=== PATIENT | female | born 1980 | race Caucasian/White ===

== ENCOUNTER 2025-06-06 14:44 | Emergency (ER) | payer MEDICAID, OTHER ==
[~2025-06-06] VITALS: Ht 157.5 cm; Wt 91.0 kg
[2025-06-06 14:45] VITALS: BP 151/102; PULSE 89; RESP 20; TEMP 98.4; O2SAT 99
[2025-06-06] MEDS ORDERED: SODIUM CHLORIDE 0.9% 1,000 ML IV ONE (15:00)
--- NOTE | 2025-06-06 15:19 | ED.PDOC ---
History of Present Illness HPI Comments A 45-YEAR-OLD FEMALE BROUGHT IN BY EMS PRESENTS WITH A CHIEF COMPLAINT OF HEAT EXPOSURE WITH ASSOCIATED NAUSEA AND VOMITING. PATIENT STATES THAT SHE WAS WALKING OUTSIDE AND IN THE SUN FOR 4 HOURS WITHOUT WATER. PATIENT WAS OFFERED AN IV FLUIDS AND MEDICATIONS, BUT PATIENT DECIDED TO SIGN OUT AMA AND NOT ALLOW STAFF TO INSERT AN IV OR DRAW BLOOD FOR LAB WORK. PT DENIES FEVER, SOB, CHEST PAIN, abd pain, headache and other complaints. NO OTHER SYMPTOMS OR MODIFYING FACTORS PRESENT AT THIS TIME. Time Seen by MD: 15:06 Primary Care Provider: Reviewed Notes: Nurses Notes, Medications, Allergies Allergies: Coded Allergies: NO KNOWN ALLERGIES (Unverified , 05/02/12) Home Meds No Active Prescriptions or Reported Meds Information Source: Patient, Emergency Med Personnel Mode of Arrival: Ambulatory Severity: Mild, Moderate Timing: Hours Duration: Since onset Prehospital treatment: None Medication Refill: For: Other (HEAT EXPOSURE ) Past Medical History PAST MEDICAL HISTORY: Denies Surgical History: Hysterectomy Family History Family History: Unknown Social History Smoker: Cigarettes Alcohol: Denies ETOH Use Drugs: Marijuana Lives In: Home Constitutional: denies: chills, diaphoresis, fatigue, fever, malaise, sweats, weakness, others EENTM: denies: blurred vision, double vision, ear bleeding, ear discharge, ear drainage, ear pain, ear ringing, eye pain, eye redness, hearing loss, mouth pain, mouth swelling, nasal discharge, nose bleeding, nose congestion, nose pain, photophobia, tearing, throat pain, throat swelling, voice changes, others Respiratory: denies: cough, hemoptysis, orthopnea, SOB at rest, shortness of breath, SOB with excertion, stridor, wheezing, others Cardiovascular: denies: chest pain, dizzy spells, diaphoresis, Dyspnea on exertion, edema, irregular heart beat, left arm pain, lightheadedness, palpitations, PND, syncope, others Gastrointestinal: reports: nausea, vomiting; denies: abdomen distended, abdominal pain, blood streaked bowels, constipated, diarrhea, dysphagia, difficulty swallowing, hematemesis, melena, poor appetite, poor fluid intake, rectal bleeding, rectal pain, others Genitourinary: denies: abnormal vagina bleeding, burning, dyspareunia, dysuria, flank pain, frequency, hematuria, incontinence, pain, , vagina discharge, urgency, others Neurological: denies: dizziness, fainting, headache, left sided numbness, left sided weakness, numbness, paresthesia, pre-existing deficit, right sided numb ness, right sided weakness, seizure, speech problems, tingling, tremors, weakness, others Musculoskeletal: denies: back pain, gout, joint pain, joint swelling, muscle pain, muscle stiffness, neck pain, others Integumetry: denies: bruises, change in color, change in hair/nails, dryness, laceration, lesions, lumps, rash, wounds, others Allergic/Immunocompromised: denies: Difficulty Healing, Frequent Infections, Hives, Itching, others Hematologic/Lymphatic: denies: anemia, blood clots, easy bleeding, easy bruising, swollen glands, others Endocrine: denies: excessive hunger, excessive sweating, excessive thirst, excessive urination, flushing, intolerance to cold, intolerance to heat, unexplained weight gain, unexplained weight loss, others Psychiatric: denies: anxiety, bipolar disorder, depression, hopeless, panic disorder, schizophrenia, sleepless, suicidal, others All Other Systems: Reviewed and Negative Physical Exam General Appearance: No Apparent Distress, Normal HEENT: Normal ENT Inspection, PERRL/EOMI, Pharynx Normal, TMs Normal Neck: Full Range of Motion, Non-Tender, Normal, Normal Inspection Respiratory: Chest Non-Tender, Lungs Clear, No Accessory Muscle Use, No Respiratory Distress, Normal Breath Sounds Cardiovascular: No Edema, No JVD, No Murmur, No Gallop, Normal Peripheral Pulses, Regular Rate/Rhythm Breast Exam: Deferred Gastrointestinal: No Organomegaly, Non Tender, No Pulsatile Mass, Normal Bowel Sounds, Soft Genitalia: Deferred Pelvic: Deferred Rectal: Deferred Extremities: No calf tenderness, Normal capillary refill, Normal inspection, Normal range of motion, Non-tender, No pedal edema Musculoskeletal : Apperance: Normal Neurologic: Alert, e business consultant II-XII nml as Tested, No Motor Deficits, Normal Affect, Normal Mood, No Sensory Deficits Cerebellar Function: Normal Reflexes: Normal Skin: Dry, Normal Color, Warm Peripheral Pulses: 2+ carotid (R), 2+ carotid (L) Lymphatic: No Adenopathy Was a procedure done? Was a procedure done?: No Differential Dx Considerations may include: HEAT EXPOSURE, HEAT EXHAUSTION X-Ray, Labs, Meds, VS Vital Signs Date Time Temp Pulse Resp B/P (MAP) Pulse Ox O2 Delivery O2 Flow Rate FiO2 06/06/25 14:45 98.4 89 20 151/102 (118) 99 98.4 Current Medications Medications (Trade) Dose Ordered Sig/Ignacio Route Start Time Stop Time Status Last Admin Ondansetron HCl (Zofran Po) 4 mg ONCE ONCE PO 06/06/25 15:15 06/06/25 15:16 DC 06/06/25 15:26 X-Ray, Labs, Meds, VS Comment EXTERNAL MEDICAL RECORDS: NONE INDEPENDENT HISTORIANS: NONE SOCIAL DETERMINANTS OF HEALTH: NONE LABS ORDERED: CBC, BMP, UA, AND CPK REVIEWED AND INTERPRETED RESULTS: NONE IMAGING ORDERED: NONE TREATMENTS ORDERED: 0.9 NS 1L, ZOFRAN PT DECLINED PATIENT'S CASE AND RESULTS HAVE BEEN DISCUSSED WITH DR. SLATER AND THEY AGREE WITH MY PLAN OF CARE. Time of 1ST Reevaluation: 15:36 Reevaluation 1ST: Unchanged Patient Education/Counseling: Diagnosis, Treatment Family Education/Counseling: Diagnosis, Treatment SEPSIS Sepsis Screen Physician Orders Heplock Iv (06/06/25 ) Vital Signs Date Time Temp Pulse Resp B/P (MAP) Pulse Ox O2 Delivery O2 Flow Rate FiO2 06/06/25 14:45 98.4 89 20 151/102 (118) 99 98.4 Medications Medications Dose Ordered Sig/Ignacio Route Start Time Stop Time Status Last Admin Dose Admin Ondansetron HCl 4 mg ONCE ONCE PO 06/06/25 15:15 06/06/25 15:16 DC 06/06/25 15:26 Departure 1 Departure Time of Disposition: 16:00 Impression: Primary Impression: Heat exhaustion Qualified Codes: T67.5XXA - Heat exhaustion, unspecified, initial encounter Disposition: 07 LEFT AGAINST MEDICAL ADVICE Condition: Stable e-Prescriptions No Active Prescriptions or Reported Meds Critical Care Note Critical Care Time?: No Stability Stability form required: No Heart Score Heart Score: Heart Score Response (Comments) Value History N/A 0 EKG N/A 0 Age N/A 0 Risk Factors N/A 0 Troponin N/A 0 Total 0 I personally scribed for IRENE STANTON ([email or web address]) on 06/06/25 at 15:19. Electronically submitted by Alex Dee ([email or web address]). I personally scribed for IRENE STANTON ([email or web address]) on 06/06/25 at 15:31. Electronically submitted by Alex Dee ([email or web address]). IRENE STANTON Jun 06, 2025 15:19
[2025-06-06] MEDS: ONDANSETRON ODT 4 MG TAB PO ONE (15:26)
== END 2025-06-06 15:20 | disposition left against medical advice (07) ==
LOC: EDBD 14:44 → ER 14:44
DX: T67.5XXA Heat exhaustion, unspecified, initial encounter (principal); F12.90 Cannabis use, unspecified, uncomplicated; F17.210 Nicotine dependence, cigarettes, uncomplicated; Z90.710 Acquired absence of both cervix and uterus; X58.XXXA Exposure to other specified factors, initial encounter; Y93.89 Activity, other specified; Y92.89 Other specified places as the place of occurrence of the external cause; Y99.8 Other external cause status
CPT/HCPCS: 99283; Q0162